=== PATIENT | female | born 1955 | race Caucasian/White ===

== ENCOUNTER 2019-06-19 07:45 | Inpatient (IN) ==
[2019-06-13 12:34] LABS: Appearance,Urine CLEAR; Bacteria,Urine 0 /hpf (0); Bilirubin,Urine NEG (NEG); Color,Urine YELLOW; Glucose,Urine (UA) NEGATIVE (NEG); Ketones,Urine NEG (NEG); Leukocyte Esterase,Urine NEG /uL (NEG); Mucus,Urine FEW /hpf (0); Nitrate,Urine NEG (NEG); Protein,Urine NEG (NEG); Specific Gravity,Urine 1.013 (1.000-1.035); Urine Blood 0.03 mg/dL (<0.03); Urine RBC 10 /hpf (0-1); Urine Squamous Epithelial Cell < 1 /hpf (0-4); Urine WBC < 1 /hpf (0-4); Urobilinogen,Urine NEG (NEG)
[2019-06-13 13:31] LABS: Basophils # (Auto) 0 K/mcL (0.0-0.3); Basophils % (Auto) 0.4 % (0.0-2.0); Eosinophils # (Auto) 0.2 K/mcL (0.0-0.7); Granulocytes % (Auto) 62.6 % (38.0-78.0); Hematocrit 39.3 % (36.0-48.0); Hemoglobin 13.2 g/dL (12.0-15.0); Lymphocytes % (Auto) 25.4 % (15.5-49.0); Mean Cell Volume 86.1 fL (80.0-100.0); Mean Corpuscular HGB Conc 33.7 g/dL (31.0-36.0); Mean Platelet Volume 8.5 fL (7.4-10.4); Monocytes # (Auto) 0.8 K/mcL (0.1-0.9); Monocytes % (Auto) 9.6 % (1.0-12.0); Platelet Count 240 K/mcL (140-440); RBC 4.56 M/mcL (4.00-5.20); Red Cell Distribution Width 13.2 % (11.5-14.5); WBC 7.9 K/mcL (4.5-11.0)
[2019-06-13 13:43] LABS: Estimated Average Glucose(eAG) 140 mg/dL; Hemoglobin A1C 6.5 % HGB (4.0-6.0)
[2019-06-13 13:57] LABS: INR 1.1 (0.9-1.1)
[2019-06-13 14:54] LABS: Blood Urea Nitrogen 15 mg/dl (8-23); Calcium 9.2 mg/dl (8.6-10.4); Carbon Dioxide 25 mmol/L (22-30); Chloride 101 mmol/L (96-108); Glomerular Filtration Rate 93; Glucose 114 mg/dL (70-105)
[~2019-06-19 07:45] MED LIST: 0.9 % SODIUM CHLORIDE 9 ML, KETOROLAC 30 MG, ROPIVACAINE HCL/PF 49.5 ML, EPINEPHrine 0.... IJ SCH; IPRATROPIUM/ALBUTEROL 3 ML AMPUL.NEB NEB PRN; SCOPOLAMINE 1 PATCH PATCH TOPICAL PRN; ceFAZolin 2 GM in DEXTROSE 5% IN WATER 50 ML IV SCH
[2019-06-19] MEDS ORDERED: GENTAMICIN SULFATE 800 MG/20 ML VIAL IR ONE (10:58)
[2019-06-19] MEDS ORDERED: DEXAMETHASONE 10 MG/ML VIAL ONE (12:36)
[2019-06-19] MEDS ORDERED: MIDAZOLAM 5 MG/5 ML VIAL ONE (12:36)
[2019-06-19] MEDS ORDERED: PROPOFOL 200 MG/20 ML VIAL IV ONE (12:36)
[2019-06-19] MEDS ORDERED: ONDANSETRON 4 MG/2 ML VIAL ONE (12:36)
[2019-06-19] MEDS ORDERED: GLYCOPYRROLATE 0.2 MG/ML VIAL IV ONE (12:36)
[2019-06-19] MEDS ORDERED: PHENYLEPHRINE 10 MG/ML VIAL ONE (12:36)
[2019-06-19] MEDS ORDERED: ePHEDrine 50 MG/ML AMPUL IV ONE (12:36)
[2019-06-19] MEDS ORDERED: LIDOCAINE HCL/PF 100 MG/5 ML SYRINGE IV ONE (12:36)
[2019-06-19] MEDS ORDERED: diphenhydrAMINE 50 MG/ML VIAL IV PRN (14:02)
[2019-06-19] MEDS ORDERED: ONDANSETRON 4 MG/2 ML VIAL IV PRN ×2 (14:02→14:48)
[2019-06-19] MEDS ORDERED: ATROPINE SULFATE 0.4 MG/ML VIAL IV PRN (14:02)
[2019-06-19] MEDS ORDERED: FLUMAZENIL 0.1 MG/ML ML IV PRN (14:02)
[2019-06-19] MEDS ORDERED: ePHEDrine 50 MG/ML AMPUL IV PRN (14:02)
[2019-06-19] MEDS ORDERED: IPRATROPIUM/ALBUTEROL 3 ML AMPUL.NEB NEB PRN (14:02)
[2019-06-19] MEDS ORDERED: PROMETHAZINE 25 MG/ML VIAL IV PRN (14:02)
[2019-06-19] MEDS ORDERED: METHOCARBAMOL 1,000 MG/10 ML VIAL IV PRN (14:02)
[2019-06-19] MEDS ORDERED: MEPERIDINE 25 MG/ML SYRINGE IV PRN (14:02)
[2019-06-19] MEDS ORDERED: ACETAMINOPHEN 1,000 MG/100 ML BOTTLE IV ONE (14:02)
[2019-06-19] MEDS ORDERED: METOPROLOL TARTRATE 5 MG/5 ML VIAL IV PRN (14:02)
[2019-06-19] MEDS ORDERED: NALOXONE HCL 0.4 MG/ML VIAL IV PRN (14:02)
[2019-06-19] MEDS ORDERED: LACTATED RINGERS 1,000 ML IV SCH (14:15)
[2019-06-19] MEDS ORDERED: BENZOCAINE/MENTHOL 1 LOZENGE PO PRN (14:48)
[2019-06-19] MEDS ORDERED: HYDROmorphone 2 MG/ML VIAL IV PRN (14:48)
[2019-06-19] MEDS ORDERED: MAGNESIUM HYDROXIDE 30 ML ORAL.SUSP PO PRN (14:48)
[2019-06-19] MEDS ORDERED: HYDROcodone/APAP 10/325MG TABLET PO PRN (14:48)
[2019-06-19] MEDS ORDERED: TRANEXAMIC ACID 1,000 MG/10 ML VIAL IV ONE (14:48)
[2019-06-19] MEDS ORDERED: POLYETHYLENE GLYCOL 3350 17 GM PACKET PO PRN (14:48)
[2019-06-19] MEDS ORDERED: FLEETS ADULT ENEMA PR PRN (14:48)
[2019-06-19] MEDS ORDERED: BISACODYL 10 MG SUPP.RECT PR PRN (14:48)
[2019-06-19] MEDS ORDERED: glipiZIDE 5 MG TABLET PO PRN (14:54)
[2019-06-19] MEDS ORDERED: MELATONIN 3 MG TABLET PO PRN (14:54)
[2019-06-19] MEDS ORDERED: NON FORMULARY MEDICATION 1 DOSE MISCELL (Potassium 99 MG) PO SCH (15:00)
[2019-06-19] MEDS ORDERED: ALBUTEROL SULFATE 1 PUFF INHALER INH PRN (15:07)
[2019-06-19] MEDS: fentaNYL 100 MCG/2 ML VIAL IV PRN ×2 (15:45→15:49)
--- NOTE | 2019-06-19 15:58 | XRay Report ---
HISTORY: Postop right knee replacement FINDINGS: There is a well-positioned right total knee prosthesis. No fracture is present. IMPRESSION: Well-positioned right knee prosthesis Interpreted and Authenticated by: Andry Nguyen 06/19/19
[2019-06-19] MEDS: 0.9 % SODIUM CHLORIDE 1,000 ML IV SCH (16:32)
[2019-06-19] MEDS ORDERED: oxyCODONE/APAP 5/325MG TABLET PO PRN (18:34)
[2019-06-19] MEDS ORDERED: oxyCODONE/APAP 5/325MG TABLET PO ONE (19:22)
[2019-06-19] MEDS: CALCIUM W/VIT D3 500 MG TABLET PO SCH (19:36)
[2019-06-19] MEDS: SENNOSIDES 1 TABLET PO SCH (19:36)
[2019-06-19] MEDS: LACTOBACILLUS 1 CAPSULE PO SCH (19:36)
[2019-06-19] MEDS: LISINOPRIL 10 MG TABLET PO SCH (19:36)
[2019-06-19] MEDS: INSULIN DETEMIR 100 UNIT/ML SUB-Q SCH (19:36)
[2019-06-19] MEDS: VITAMIN B COMPLEX 1 CAPSULE PO SCH (19:37)
[2019-06-19] MEDS: MONTELUKAST 10 MG TABLET PO SCH (19:37)
[2019-06-19] MEDS: APIXABAN 5 MG TABLET PO SCH (19:37)
[2019-06-19] MEDS: DOCUSATE SODIUM 100 MG CAPSULE PO SCH (19:37)
[2019-06-19] MEDS: ESCITALOPRAM 10 MG TABLET PO SCH (19:37)
[2019-06-19] MEDS: BRIMONIDINE OPHTH DROPS 1 GTT BOTTLE 5ML OU SCH (19:53)
[2019-06-19] MEDS: ceFAZolin 1 GM VIAL IV SCH (20:14)
[2019-06-19] MEDS: Budesonide/Formoterol Fumarate [Symbicort] 80-4.5 mcg Inhaler INH SCH (20:17)
[2019-06-19] MEDS ORDERED: PATIENTS OWN MEDICATION 1 DOSE MISCELL SUB-Q SCH (21:00)
[2019-06-19] MEDS ORDERED: NON FORMULARY MEDICATION 1 DOSE MISCELL (Turmeric Root Extract [Turmeric] 500 MG) PO SCH (21:00)
[2019-06-19] MEDS: LATANOPROST OPHTH DROPS 2.5ML BOTTLE OU SCH (21:55)
[2019-06-19] MEDS: PATIENTS OWN MEDICATION 1 DOSE MISCELL SUB-Q SCH (21:55)
[2019-06-19] MEDS: 0.9 % SODIUM CHLORIDE 10 ML SYRINGE IV SCH (21:56)
[2019-06-19] MEDS: oxyCODONE/APAP 5/325MG TABLET PO PRN (23:08)
[2019-06-20] MEDS: ceFAZolin 1 GM VIAL IV SCH (04:41)
[2019-06-20] MEDS: 0.9 % SODIUM CHLORIDE 10 ML SYRINGE IV SCH ×3 (04:41→22:00)
[2019-06-20] MEDS: oxyCODONE/APAP 5/325MG TABLET PO PRN ×5 (05:36→18:48)
[2019-06-20] MEDS: 0.9 % SODIUM CHLORIDE 1,000 ML IV SCH ×2 (06:01→17:02)
--- NOTE | 2019-06-20 07:22 | Discharge Summary ---
Providers - Providers Patient information: Note initiated : 06/20/19 at 7:20 am Service Date, if different from initiated Date: [] Patient: Marielle Flores 64 y/o F admitted on 06/19/19 for Right Total Knee Arthroplasty Geovanny. Chief Complaint: [] Discharge date: 06/21/19 Hospitalization Hospital Course: Patient was admitted after surgery for PT and pain control. Her stay was uneventful. Discharge diagnosis: s/p Right total knee arthroplasty Exam - Exam Incision healing: Yes Incision draining: Yes Incision red: No Clean and dry: Yes Weight bearing status: full Range of motion: 10-95 Ortho Discharge - TKA - Patient Instructions Diet: Regular Diet Activity: activity as tolerated, weight bearing as tolerated Total Knee Protocol: For Total Knee: Start ROM KENDAL with stationary bike or rocking chair. Work on gaining full extension of knee. Posterior dislocation precautions provided. Hip abductor strengthening and gait training instructions provided. Apply Cryocuff as instructed. Dressing Care: May shower in 2 days, Aquacel Ag - leave on for 5 days - Follow Up Plan Disposition: Home, Self-Care Prognosis: Good Rehab Potential: Good Overall status at discharge: patient is progressing back to baseline Pending Studies Resuscitation Status Full Code Diet Consistent Carbohydrate Diet Start Maddie Oct 3 Dinner Apixaban (Eliquis) 5 mg PO BID [facility] Last Admin: 06/19/19 19:37 Dose: 5 mg Documented by: JONO Brimonidine Tartrate (Alphagan P Ophth Drops) 1 gtt OU BID [facility] Last Admin: 06/19/19 19:53 Dose: 1 gtt Documented by: JONO Calcium/Vitamin D (Calcium W/Vit D3) 500 mg PO BID [facility] Last Admin: 06/19/19 19:36 Dose: 500 mg Documented by: JONO Diagnostic Test (Pha) (Accu-Chek) 1 each FS ACHS [facility] Last Admin: 06/19/19 20:15 Dose: 1 each Documented by: JONO Docusate Sodium (Colace) 100 mg PO BID [facility] Last Admin: 06/19/19 19:37 Dose: 100 mg Documented by: JONO Escitalopram Oxalate (Lexapro) 10 mg PO HS [facility] Last Admin: 06/19/19 19:37 Dose: 10 mg Documented by: JONO Sodium Chloride (Sodium Chloride 0.9%) 1,000 mls @ 75 mls/hr IV .[id number] [facility] Last Admin: 06/20/19 06:01 Dose: Not Given Documented by: Infusion: 06/20/19 05:58 Dose: 0 mls/hr Documented by: Admin: 06/19/19 16:32 Dose: 75 mls/hr Documented by: [id number] Lactobacillus Rhamnosus (Culturelle) 1 cap PO HS [facility] Last Admin: 06/19/19 19:36 Dose: 1 cap Documented by: JONO Latanoprost (Xalatan Ophth Drops) 1 gtt OU [facility] Last Admin: 06/19/19 21:55 Dose: 1 gtt Documented by: JONO Lisinopril (Zestril) 10 mg PO [facility] Last Admin: 06/19/19 19:36 Dose: 10 mg Documented by: JONO Montelukast Sodium (Singular) 5 mg PO [facility] Last Admin: 06/19/19 19:37 Dose: 5 mg Documented by: JONO Oxycodone/Acetaminophen (Percocet 5-325 Mg) 1 - 2 tab PO Q4HP PRN; Protocol PRN Reason: PAIN LEVEL 3-6 Last Admin: 06/20/19 05:36 Dose: 1 tab Documented by: Admin: 06/19/19 23:08 Dose: 1 tab Documented by: JONO Budesonide/Formoterol Fumarate [Symbicort] 80-4.5 Mcg Inhaler 2 dose INH BID [facility] Last Admin: 06/19/19 20:17 Dose: Not Given Documented by: JONO Insulin Detemir [ Levemir] Flextouch 100 Units/Ml Pen 34 dose SUB-Q BID [facility] Last Admin: 06/19/19 19:36 Dose: 34 dose Documented by: JONO Patient Own Medication () 0 dose SUB-Q ACHS [facility]; Protocol Last Admin: 06/19/19 21:55 Dose: Not Given Documented by: JONO Senna (Senokot) 2 tab PO [facility] Last Admin: 06/19/19 19:36 Dose: 2 tab Documented by: JONO Sodium Chloride (Saline Flush) 10 ml IV Q8 [facility] Last Admin: 06/20/19 04:41 Dose: 10 ml Documented by: Admin: 06/19/19 21:56 Dose: Not Given Documented by: JONO Vitamin B Complex (Vitamin B Complex) 1 cap PO HS [facility] Last Admin: 06/19/19 19:37 Dose: 1 cap Documented by: JONO Shift Summary 06/20/19 03:16 Shift Summary by Mis Cohen Addendum entered by Mis Cohen R.N. 06/20/19 03:40: Right knee dressing has small bloody drainage, reinforced dressing with ABD pad. Eric wrap keep on moving down, covered top incision with gauze and tape. Original Note: Patient alert and oriented x4. Hardly slept this shift. Refused sleeping pill last night. Medicated for pain with Percocet 5 x2 with good effect. Up with FWW and standby assist in room. Ambulated [address] last night. Tolerated CPM 0-60 deg for 3 hours. Voids to the bathroom, 200 mls void, PVR 416 mls at 0042H. Will continue to BS before shift change. BSL at HS 270, pt monitors her blood sugar, she has an implanted device (Freestyle Heidi) on LUISA. IV on LFA, will saline lock at shift change. AV boots on last night. Requested to be off AV boots this AM. Uses IS 1500 level. VSS. Initialized on 06/20/19 03:16 - END OF NOTE
--- NOTE | 2019-06-20 07:41 | Orthopedic Progress Note ---
Subjective Patient information: Note initiated : 06/20/19 at 7:39 am Service Date, if different from initiated Date: [] Patient: Marielle Flores 64 y/o F admitted on 06/19/19 for Right Total Knee Arthroplasty Geovanny. Chief Complaint: [] Interval history: Patient is doing well today and her pain is controlled. She is participating in PT and walking well with walker. She denies any SOB, abdominal pain, chest pain, or any other acute symptoms. Objective Vital signs: Vital Signs Temp Pulse Pulse Resp BP BP Pulse Ox 06/20/19 06:55 99 F 20 119/64 96 06/20/19 02:45 97.8 F 91 H 18 113/62 96 06/20/19 00:13 97.8 F 96 H 16 107/60 100 06/19/19 20:00 98 F 98 H 18 108/57 95 06/19/19 16:10 83 16 98 06/19/19 15:57 97.0 F 83 13 140/61 93 06/19/19 15:45 97.0 F 83 13 130/71 96 06/19/19 15:30 97.2 F 85 20 138/56 97 06/19/19 15:15 97.2 F 89 23 H 129/51 100 06/19/19 15:10 80 20 115/54 100 06/19/19 15:05 82 18 106/48 100 06/19/19 15:00 97.0 F 92 H 16 127/56 100 06/19/19 08:45 98.4 F 71 20 117/68 96 06/19/19 08:00 98.4 F 71 20 117/68 96 Intake and Output 06/19/19 06/20/19 06/20/19 21:59 05:59 13:59 Intake Total 3380 1830 Output Total 1150 900 Balance 2230 930 Intake: IV 100 1000 Sodium Chloride 0.9% 1,000 ml @ 1000 75 mls/hr IV .[id number] [facility] Rx#: [id number] Oral 880 830 IV - Manual Only 2400 Output: Urine Catheter Amount 600 Straight 600 Void Amount 500 900 Estimated Blood Loss 50 Other: Meal Dinner sherbet, iced tea, Percent of Meal Consumed 100% 100% Feeding Ability Independent Independent Urine Appearance Clear Straight Clear Urine Color Bright Yellow Bright Yellow Straight Pale Urine Odor Normal Normal # Voids 1 Weight 247 lb Intake & Output: Intake & Output 06/19/19 06/20/19 06/20/19 21:59 05:59 13:59 Intake Total 3380 1830 Output Total 1150 900 Balance 2230 930 Weight 247 lb Intake: IV 100 1000 Sodium Chloride 0.9% 1,000 ml @ 1000 75 mls/hr IV .[id number] [facility] Rx#: [id number] Oral 880 830 IV - Manual Only 2400 Output: Urine Catheter Amount 600 Straight 600 Void Amount 500 900 Estimated Blood Loss 50 Other: Meal Dinner sherbet, iced tea, Percent of Meal Consumed 100% 100% Feeding Ability Independent Independent Urine Appearance Clear Straight Clear Urine Color Bright Yellow Bright Yellow Straight Pale Urine Odor Normal Normal # Voids 1 Extremities exam IM: No calf tenderness, Yes Foot pink and warm, Yes neurovascular intact - Labs CBC & BMP: 06/20/19 04:35 06/13/19 10:57 Labs: Orthopedic Labs 06/13/19 10:57 PT 14.0 INR 1.1 06/20/19 06/13/19 04:35 10:57 Hgb 10.8 L 13.2 Hct 39.3 Assessment and Plan (1) Status post total knee replacement, right Status: Acute - Narrative A/P Narrative: Patient doing well and will continue PT and discharge tomorrow with pain medicine and apixaban 2.5 BID x 12 days. Follow up with DARA in 2 weeks for staple removal Aquacell for 5 days to be applied at discharge.
[2019-06-20] MEDS: MELOXICAM 7.5 MG TABLET PO SCH (08:51)
[2019-06-20] MEDS: DOCUSATE SODIUM 100 MG CAPSULE PO SCH ×2 (08:51→20:29)
[2019-06-20] MEDS: CALCIUM W/VIT D3 500 MG TABLET PO SCH ×2 (08:51→20:31)
[2019-06-20] MEDS: APIXABAN 5 MG TABLET PO SCH ×2 (08:51→20:29)
[2019-06-20] MEDS: MULTIVIT,THER IRON,CA,FA & MIN 1 TABLET PO SCH (08:51)
[2019-06-20] MEDS: VITAMIN D3 1,000 UNIT TABLET PO SCH (08:52)
[2019-06-20] MEDS: HYDROCHLOROTHIAZIDE 25 MG TABLET PO SCH (08:52)
[2019-06-20] MEDS: FERROUS SULFATE 325 MG TABLET PO SCH (08:52)
[2019-06-20] MEDS: INSULIN DETEMIR 100 UNIT/ML SUB-Q SCH ×3 (08:53→20:33)
[2019-06-20] MEDS: PATIENTS OWN MEDICATION 1 DOSE MISCELL SUB-Q SCH ×4 (08:55→22:01)
[2019-06-20] MEDS: BRIMONIDINE OPHTH DROPS 1 GTT BOTTLE 5ML OU SCH ×3 (08:55→22:00)
[2019-06-20] MEDS: Budesonide/Formoterol Fumarate [Symbicort] 80-4.5 mcg Inhaler INH SCH ×2 (08:57→20:32)
--- NOTE | 2019-06-20 10:20 | Operative Note ---
DATE OF OPERATION: 06/19/2019 PREOPERATIVE DIAGNOSIS: Degenerative joint disease of the right knee. POSTOPERATIVE DIAGNOSIS: Degenerative joint disease of the right knee. OPERATION: Right total knee replacement. SURGEON: Clifton Philippe MD POKER IN: Ming Deng PA-C. This provider's expertise and technical skill were required throughout the case. The KALLI assisted with preoperative coordination, intraoperative retraction, wound closure, dressing and splint application, as well as postoperative documentation and care coordination. ANESTHESIA: General. TOURNIQUET TIME: About 80 minutes. ESTIMATED BLOOD LOSS: 50 mL SUMMARY OF PROCEDURE: General anesthesia was attained. The right leg was prepped and draped. A thigh-level tourniquet was put up. An incision was made from the quadriceps to the tibial tubercle. This was taken down to the quadriceps and medial retinacular layer. A mid vastus approach was used. The patella was mobilized laterally. A medial release was done. The menisci and fat pad were debrided. Checkpoints were placed into the femur and then into the tibia. Two stab incisions were made in the femur. Two stab incisions were made in the tibia. I drilled down to the femur with a 4.0 pin for the arrays. This was also done in the tibia with a 3.2 mm pin. The arrays were next placed and this was verified using the robotic system. Hip center was identified by counter clockwise rotation of the leg in 20 degrees of flexion. The checkpoints were placed. Forty anatomic landmarks were identified on the femur and then confirmation done. This was also done on the tibia. Balancing had been done as well and minor adjustments made in the preoperative planning including adding 2 mm to the distal femoral cut as the patient had a flexion contracture. Using robotic guidance, the cuts were made in the proximal tibia and standard cuts in the femur. The tibia was next prepped. An external rotation was adjusted under echo guidance. The tibia sized to a 4. It was drilled and broached. Trials were then done of the tibia and femur. The best combination of stability with full range of motion was with a 9 mm polyethylene. This was a CS trial and ultimately component. The patella was everted. It measured 19 mm and we took off 5 or 6 mm, so that there were 14 mm left. The patella sized to a 29. A partial lateral facetectomy resecting the overhanging lateral facet was removed with the saw. Multimodal injection was injected throughout the knee with care being taken to protect the popliteal artery and peroneal nerve. The components were next cemented in. The cement was cured with the knee in full extension. Excess cement was removed. The tourniquet was let down. All bleeding points were coagulated. The medial retinaculum and quadriceps and VMO were closed with running sutures of Dermabond. The subcutaneous tissue was closed with buried 2-0 Monocryl. The skin was closed with mindy. A sterile compressive dressing was applied. The sponge and needle count was correct. The patient tolerated the procedure well and was taken to the recovery room in stable condition. [id number] Job ID: [id number] Doc ID: [id number] Clifton Philippe MD
[2019-06-20] MEDS: CYCLOBENZAPRINE 10 MG TABLET PO PRN (17:14)
[2019-06-20] MEDS: MONTELUKAST 10 MG TABLET PO SCH (20:29)
[2019-06-20] MEDS: LISINOPRIL 10 MG TABLET PO SCH (20:30)
[2019-06-20] MEDS: LACTOBACILLUS 1 CAPSULE PO SCH (20:30)
[2019-06-20] MEDS: ESCITALOPRAM 10 MG TABLET PO SCH (20:30)
[2019-06-20] MEDS: SENNOSIDES 1 TABLET PO SCH (20:30)
[2019-06-20] MEDS: LATANOPROST OPHTH DROPS 2.5ML BOTTLE OU SCH (20:31)
[2019-06-20] MEDS: VITAMIN B COMPLEX 1 CAPSULE PO SCH (20:38)
[2019-06-20] MEDS ORDERED: INSULIN LISPRO 1 UNIT/0.01 ML UNIT SQ ONE (22:00)
[2019-06-21] MEDS: oxyCODONE/APAP 5/325MG TABLET PO PRN ×3 (02:23→11:27)
[2019-06-21] MEDS: CYCLOBENZAPRINE 10 MG TABLET PO PRN ×2 (02:23→11:27)
[2019-06-21] MEDS: 0.9 % SODIUM CHLORIDE 10 ML SYRINGE IV SCH (04:06)
[2019-06-21] MEDS: INSULIN LISPRO 1 UNIT/0.01 ML UNIT SQ SCH ×2 (07:08→11:27)
[2019-06-21] MEDS: 0.9 % SODIUM CHLORIDE 1,000 ML IV SCH (07:20)
[2019-06-21] MEDS: PATIENTS OWN MEDICATION 1 DOSE MISCELL SUB-Q SCH ×2 (07:49→11:29)
[2019-06-21] MEDS: MELOXICAM 7.5 MG TABLET PO SCH (08:43)
[2019-06-21] MEDS: HYDROCHLOROTHIAZIDE 25 MG TABLET PO SCH (08:43)
[2019-06-21] MEDS: DOCUSATE SODIUM 100 MG CAPSULE PO SCH (08:43)
[2019-06-21] MEDS: CALCIUM W/VIT D3 500 MG TABLET PO SCH (08:43)
[2019-06-21] MEDS: APIXABAN 5 MG TABLET PO SCH (08:43)
[2019-06-21] MEDS: MULTIVIT,THER IRON,CA,FA & MIN 1 TABLET PO SCH (08:43)
[2019-06-21] MEDS: VITAMIN D3 1,000 UNIT TABLET PO SCH (08:43)
[2019-06-21] MEDS: FERROUS SULFATE 325 MG TABLET PO SCH (08:43)
[2019-06-21] MEDS: INSULIN DETEMIR 100 UNIT/ML SUB-Q SCH (09:08)
[2019-06-21] MEDS: Budesonide/Formoterol Fumarate [Symbicort] 80-4.5 mcg Inhaler INH SCH (09:08)
[2019-06-21] MEDS: BRIMONIDINE OPHTH DROPS 1 GTT BOTTLE 5ML OU SCH (09:08)
--- NOTE | 2019-06-21 09:31 | Orthopedic Progress Note ---
Subjective Patient information: Note initiated : 06/21/19 at 9:29 am Service Date, if different from initiated Date: [] Patient: Marielle Flores 64 y/o F admitted on 06/19/19 for Right Total Knee Arthroplasty Geovanny. Chief Complaint: [S/p Right TKA] Patient is doing well and ambulates well. She has no particular complaints today. She denies any chest pain, SOA, or calf tenderness. Objective Vital signs: Vital Signs Temp Pulse Resp BP Pulse Ox 06/21/19 07:08 98.0 F 78 18 127/64 98 06/21/19 04:30 97.6 F 70 18 122/60 95 06/20/19 22:42 98.1 F 75 20 121/64 95 06/20/19 20:00 97.3 F 81 20 117/61 95 06/20/19 18:44 97.3 F 81 20 117/61 95 06/20/19 16:00 98.6 F 16 128/65 97 06/20/19 11:51 98.5 F 20 101/55 94 Intake and Output 06/20/19 06/21/19 06/21/19 21:59 05:59 13:59 Intake Total 350 300 240 Output Total 900 800 Balance -550 -500 240 Intake: Oral 350 300 240 Output: Void Amount 900 800 Other: Meal Dinner Breakfast Percent of Meal Consumed 100% 100% Feeding Ability Independent Independent Urine Appearance Clear Clear Urine Color Pale Bright Yellow Urine Odor Normal Normal # Voids 1 1 Weight 249 lb 8 oz Intake & Output: Intake & Output 06/20/19 06/21/19 06/21/19 21:59 05:59 13:59 Intake Total 350 300 240 Output Total 900 800 Balance -550 -500 240 Weight 249 lb 8 oz Intake: Oral 350 300 240 Output: Void Amount 900 800 Other: Meal Dinner Breakfast Percent of Meal Consumed 100% 100% Feeding Ability Independent Independent Urine Appearance Clear Clear Urine Color Pale Bright Yellow Urine Odor Normal Normal # Voids 1 1 Incision: Yes healing, Yes clean and dry Incision clean and dry: Yes Dressing: Yes clean, Yes dry, Yes intact Weight bearing status: full Neurological exam IM: Yes alert, Yes altered, Yes oriented X3, Yes motor sensory intact, Yes neurovascular intact Extremities exam IM: Yes calf tenderness (negative), Yes joint swelling (right knee), Yes tenderness (right knee ), Yes Cat's sign (negative bilaterally), Yes Foot pink and warm, Yes neurovascular intact - Labs CBC & BMP: 06/21/19 04:15 06/13/19 10:57 Labs: Orthopedic Labs 06/13/19 10:57 PT 14.0 INR 1.1 06/21/19 06/20/19 06/13/19 04:15 04:35 10:57 Hgb 10.4 L 10.8 L 13.2 Hct 39.3 Assessment and Plan (1) Status post total knee replacement, right Continue PT to improve ROM. Discharge to home today. Verbal discharge instructions were discussed today. Follow-up with Ming Deng PA-C in 2 weeks. Call with any questions or concerns. Status: Acute
[2019-06-21] MEDS ORDERED: INSULIN LISPRO 1 UNIT/0.01 ML UNIT SQ SCH (21:36)
[2019-06-22] MEDS ORDERED: DULAGLUTIDE 0.75 MG SUB-Q SCH (21:00)
== END 2019-06-21 13:48 | disposition home or self-care (01) | DRG 470 ==
LOC: MEDSUR 07:45
PROVIDERS: ADMIT Orthopaedic Surgery Foot and Ankle Surgery; ATTEND Orthopaedic Surgery Foot and Ankle Surgery